=== PATIENT | female | born 1995 | race Caucasian/White ===

== ENCOUNTER 2021-06-06 15:40 | Emergency (ER) | payer MEDICAID ==
[~2021-06-06] VITALS: Ht 160 cm; Wt 80.0 kg
[2021-06-06 20:35] LABS: BASOPHILS % 0.5 % (0.0-2.0); EOSINOPHILS % 3.7 % (0.0-5.0); HEMATOCRIT. 38.7 % (36.0-48.0); HEMOGLOBIN. 13.3 g/dL (12.0-16.0); LYMPHOCYTES % 30.8 % (20.0-50.0); MEAN CORPUSCULAR VOLUME 93.4 fL (81.0-99.0); MEAN PLATELET VOLUME 8.6 fl (7.4-10.4); MONOCYTES % 6.5 % (2.0-8.0); NEUTROPHILS % 58.5 % (40.0-76.0); PLATELET 376 x1000/uL (130-400); RED BLOOD CELL COUNT 4.14 mill/uL (4.2-5.4); RED CELL DISTRIBUTION WIDTH 13.6 % (11.6-14.6)
[2021-06-06 20:47] LABS: CHLORIDE 111 mEq/L (98-107)
[2021-06-06 22:14] VITALS: BP 129/84
== END 2021-06-06 22:21 | disposition home or self-care (01) ==
LOC: ER 15:40
DX: Z22.7 Latent tuberculosis (principal); B34.9 Viral infection, unspecified; F17.210 Nicotine dependence, cigarettes, uncomplicated; Z71.6 Tobacco abuse counseling; Z20.822 Contact with and (suspected) exposure to COVID-19
CPT/HCPCS: 36415; 71045; 80053; 84484; 85025; 87426; 93005; 99285; A4315

== ENCOUNTER 2021-06-08 17:35 | Emergency (ER) | payer MEDICAID ==
[~2021-06-08] VITALS: Ht 152.4 cm; Wt 85.0 kg
[2021-06-08 17:38] VITALS: BP 109/68
== END 2021-06-08 19:08 | disposition home or self-care (01) ==
LOC: ER 17:35
DX: R05.9 Cough, unspecified (principal); Z86.11 Personal history of tuberculosis; F15.10 Other stimulant abuse, uncomplicated; Z98.890 Other specified postprocedural states
CPT/HCPCS: 99281